=== PATIENT | male | born 2000 ===

== ENCOUNTER 2018-12-03 00:41 | Emergency (ER) | payer OTHER ==
--- NOTE | 2018-12-03 01:01 | ER Document Report ---
ED Medical Screen (RME) - General Chief Complaint: Passed Out Prior to Arrival Stated Complaint: SYCONPE Time Seen by Provider: 12/03/18 00:55 Notes: Patient brought in by ambulance for syncopal episode. Patient does not recall blacking out. Also complaining of dog bite to his hand. I have treated and performed a rapid initial assessment of this patient. A comprehensive ED assessment and evaluation of the patient, analysis of test results and completion of medical decision making process will be conducted by additional ED providers. PHYSICAL EXAMINATION: GENERAL: Well-appearing, well-nourished and in no acute distress. A&Ox4. LUNGS: Breath sounds clear to auscultation bilaterally and equal. No wheezes rales or rhonchi. HEART: Regular rate and rhythm without murmurs, rubs, gallops. ABDOMEN: Soft, nondistended abdomen. No guarding, no rebound. Normal bowel sounds present. No CVA tenderness bilaterally. + mild epigastric tenderness (cannot elicit thorough abd exam w/o table, however). Extremities: No cyanosis, clubbing, or edema b/l. TRAVEL OUTSIDE OF THE [place] IN LAST 30 DAYS: No - Related Data Allergies/Adverse Reactions: No Known Allergies Allergy (Unverified 12/03/18 00:50)
== END 2018-12-03 01:25 | disposition left against medical advice (07) ==
LOC: ER 00:41
DX: R55 Syncope and collapse (principal); S61.459A Open bite of unspecified hand, initial encounter; W54.0XXA Bitten by dog, initial encounter; R10.816 Epigastric abdominal tenderness; Z53.20 Procedure and treatment not carried out because of patient's decision for unspecified reasons
CPT/HCPCS: 99281